=== PATIENT | female | born 1985 | race Caucasian/White ===

== ENCOUNTER → 2016-10-12 | Outpatient (CLI) | payer BC ==
--- NOTE | 2016-10-12 17:50 | DI ---
CT ABDOMEN SCAN WITHOUT IV CONTRAST, 10/12/2016 3:06 PM : Clinical History: Right lower quadrant abdominal pain. Previous Exam: None at this facility. Scans are performed from the lower lung bases through the liver and kidneys without IV contrast. Sagi ttal and coronal reformatted images are generated. The lung bases are clear. The liver is normal. The patient is status post cholecystectomy. There is n o abnormality of the spleen, pancreas, and adrenal glands. Both kidneys are normal in size, shape, po sition and contour. There is no left hydronephrosis or hydroureter. There is mild right hydroureter e xtending to a level just inferior to the right sacroiliac joint at which point the ureter cannot be i dentified. The distal right ureter just proximal to the bladder also cannot be identified with certai nty. There is a radiodensity measuring approximately 4 mm in diameter that is located just to the rig ht of midline toward the posterior aspect of the bladder. This can either represent a right ureteral calculus that is actually in the bladder, or this may represent a calculus in the right ureterovesicu lar junction where the UV junction is in an anomalous location. There is no duplication of the right kidney or ureter identified. No renal calculi or left ureteral calculi are present. There are no abno rmal retrocrural or periaortic nodes. No ascites is present. READIN. There is mild right hydroureter extending to the distal right ureter but the most distal 5 cm of the ureter are not identified with certainty. There is a 4 mm density lying just to the right of midl ine in the posterior pelvis that either represents a right ureteral calculus that has been expelled i nto the bladder or it represents a distal right ureterovesicular junction calculus and the insertion of the right ureter is in an ectopic location. 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 The left kidney and ureter are normal. 2. The remainder of the study is normal. CT PELVIS SCAN WITHOUT IV CONTRAST, 10/12/2016 3:06 PM : Clinical History: See above. Previous Exam: None. Scans are performed from the inferior margin of the liver and kidneys to the symphysis pubis without IV contrast. There is no free fluid collection and there is no adenopathy. The appendix is normal. The small bowel , terminal ileum, and ileocecal valve are normal. The colon is also normal. There are no hernias. The uterus and both ovaries are normal. READING: Normal CT pelvis scan.
== END ==
LOC: CT 15:00
DX: R10.31 Right lower quadrant pain (principal); N13.4 Hydroureter
CPT/HCPCS: 74176

== ENCOUNTER → 2016-10-12 | Outpatient (CLI) | payer BC ==
[2016-10-12 14:05] LABS: BASOPHILS # (AUTO) 0.03 10*3/UL; BASOPHILS % (AUTO) 0.3 % (0-1); EOSINOPHILS % (AUTO) 0.9 % (0-8); HEMATOCRIT 39.4 % (37.0-47.0); HEMOGLOBIN 13.2 g/dL (12.0-16.0); IMM GRAN % (AUTO) 0.2 % (0-5); IMM GRAN# (AUTO) 0.02 10*3/UL; LYMPHOCYTES # (AUTO) 2.06 10*3/uL; LYMPHOCYTES % (AUTO) 18.8 % (10-50); MEAN CORPUSCULAR HEMOGLOBIN 28.8 PG (27-31); MEAN CORPUSCULAR HGB CONC 33.5 g/dL (33-37); MEAN PLATELET VOLUME 10.9 FL (7.4-12.2); MONOCYTES # (AUTO) 0.54 10*3/UL (0.3-0.8); MONOCYTES % (AUTO) 4.9 % (5-15); NEUTROPHILS # (AUTO) 8.23 10*3/UL; NEUTROPHILS % (AUTO) 74.9 % (50-80); RDW COEFFICIENT OF VARIATION 12.9 % (11.5-14.5); RED BLOOD COUNT 4.58 10^6/uL (4.20-5.40); WHITE BLOOD COUNT 10.98 10^3/uL (4.8-10.8)
[2016-10-12 14:09] LABS: PLATELET MORPHOLOGY COMMENT NORMAL MORPHOLOGY (NORM)
[2016-10-12 14:22] LABS: BLOOD UREA NITROGEN 10 mg/dL (7-22); CALCIUM 9.3 mg/dL (8.7-10.7); CHLORIDE 107 meq/L (98-112); EST GLOMERULAR FILTRATION > 60 (>60 ml/min/1.73m(2)); GLUCOSE 114 mg/dL (78-110); POTASSIUM 3.6 meq/L (3.8-5.2); SODIUM 139 meq/L (135-145)
== END ==
LOC: MOB LAB 13:09
DX: R10.31 Right lower quadrant pain (principal); R30.0 Dysuria
CPT/HCPCS: 36415; 80048; 85025; 87088; 87185; 87205